=== PATIENT | female | born 1995 | race Caucasian/White ===

== ENCOUNTER 2021-07-17 00:11 | Emergency (ER) | payer MEDICAID ==
[~2021-07-17] VITALS: Ht 177.8 cm; Wt 63.5 kg
--- NOTE | 2021-07-17 00:42 | NUR ---
Dr hendricks at bedside, MSE in progress.
[2021-07-17 00:52] LABS: HEMATOCRIT 37.9 % (31.2-41.9); MEAN CORPUSCULAR HEMOGLOBIN 32.3 uug (24.7-32.8); MEAN CORPUSCULAR VOLUME 92.8 fL (75.5-95.3); PLATELET COUNT (AUTO) 255 K/uL (179-408)
[2021-07-17 01:03] LABS: BILIRUBIN,DIRECT 0.2 mg/dL (0.0-0.2); BILIRUBIN,TOTAL 0.8 mg/dL (0.2-1.0); CREATININE 0.7 mg/dL (0.6-1.3); POTASSIUM 4.1 mmol/L (3.5-5.1); TOTAL PROTEIN, SERUM 7.5 g/dL (6.4-8.2)
[2021-07-17 01:11] LABS: *BILIRUBIN,URIN NEGATIVE (NEGATIVE); *COLOR,URINE YELLOW (YELLOW); *KETONES,URINE 3+ (NEGATIVE); *UROBILINOGEN,URINE 0.2 E.U./dl (NORMAL); LEUKOCYTE ESTERASE ,URINE NEGATIVE (NEGATIVE); NITRITE, URINE NEGATIVE (NEGATIVE); UGLUCOSE NEGATIVE (NEGATIVE)
--- NOTE | 2021-07-17 01:11 | NUR ---
unable to find heart tones
[2021-07-17 01:17] LABS: *BLOOD, URINE TRACE (NEGATIVE); *CLARITY,URINE HAZY (CLEAR)
[2021-07-17 01:23] LABS: BACTERIA,URINE MANY /HPF (NONE SEEN); RBC,URINE 0-3 /HPF (0-3); SQUAMOUS EPITHELIAL CELL,UR MANY /HPF (NONE SEEN)
[2021-07-17] MEDS ORDERED: MAGNESIUM SULFATE/D5W 200 ML ONE (01:45)
[2021-07-17] MEDS: MAGNESIUM SULFATE/D5W 100 ML IV SCH ×2 (02:39→02:53)
[2021-07-17] MEDS ORDERED: OXYC-128 PO (03:46)
[2021-07-17] MEDS ORDERED: PREN1TAB81 PO (03:46)
[2021-07-17 04:07] VITALS: BP 135/64
--- NOTE | 2021-07-17 04:07 | NUR ---
Patient discharged to home in stable condition. Written and verbal after care instructions given. Patient verbalizes understanding of instructions. Stressed follow up or return to ER for worsening s/s. pt ambulated with steady gait. denies pain. no SOB. no chest pain. AOx4
== END 2021-07-17 04:08 | disposition home or self-care (01) ==
LOC: ER 00:11
DX: O26.891 Other specified pregnancy related conditions, first trimester (principal); Z3A.01 Less than 8 weeks gestation of pregnancy; R10.10 Upper abdominal pain, unspecified; E83.42 Hypomagnesemia; M94.0 Chondrocostal junction syndrome [Tietze]
CPT/HCPCS: 36415; 76705; 76805; 80048; 80076; 81001; 83735; 84702; 85025; 87086; 96365; 99285; J3475; 70030-TC; A4663